=== PATIENT | female | born 1965 | race Caucasian/White ===

== ENCOUNTER 2019-02-19 03:32 | Emergency (ER) | payer OTHER ==
[~2019-02-19] VITALS: Ht 157.5 cm; Wt 67.7 kg
[~2019-02-19 03:32] MED LIST: LEXAPRO10 MG PO; LIBRAX CAPSULE1 CAP PO; NORCO 10/325 TA1 TA1 PO; NORCO 5/325 TAB1 TA1 PO
[2019-02-19 03:35] VITALS: Ht 157.5 cm; Wt 67.7 kg
[2019-02-19 03:55] LABS: BASOPHILS 0.3 % (0-2); EOSINOPHILS 0.5 % (0-7); HEMATOCRIT 41.7 % (36.0-48.0); HEMOGLOBIN 14.7 g/dL (12-16); IMMATURE GRANULOCYTES 0.1 % (0-5); LYMPHOCYTES 16.9 % (15-50); MCH 30.8 pg (26.0-34.0); MCHC 35.3 g/dL (31.0-37.0); MCV 87.2 fL (80.0-100.0); MEAN PLATELET VOLUME 9.6 fL (7.4-10.4); NEUTROPHILS 74.2 % (40-80); PLATELET COUNT 261 10x3/uL (130-400); RBC 4.78 10x6/uL (4.00-5.40); RDW 11.9 % (11.5-14.5); WBC 10.5 10x3/uL (4.8-10.8)
[2019-02-19 04:00] LABS: APPEARANCE HAZY (CLEAR); BACTERIA NONE SEEN /hpf (NONE SEEN); COLOR ORANGE (YELLOW); EPITHELIAL CELLS NSEEN /hpf (0-5); SPECIFIC GRAVITY 1.015 (1.005-1.020); WHITE CELLS - URINE NSEEN /hpf (0-5)
[2019-02-19 04:09] LABS: ALBUMIN 4.6 g/dL (3.4-5.0); ALKALINE PHOSPHATASE 104 U/L (46-116); ALT (SGPT) 35 U/L (10-68); BILIRUBIN - TOTAL 0.42 mg/dL (0.2-1.3); CALC OSMOLALITY 284 mosm/kg (275-300); CALCIUM 9.1 mg/dL (8.5-10.1); CARBON DIOXIDE 24.6 mmol/L (21.0-32.0); CHLORIDE - SERUM 104 mmol/L (98-107); GLUCOSE 117 mg/dL (74-106); POTASSIUM - SERUM 3.7 mmol/L (3.5-5.1); SODIUM 140 mmol/L (136-145); UREA NITROGEN 26 mg/dL (7-18); eGFR NON AFRICAN AMERICAN 62 mL/min (90-120)
[2019-02-19 04:12] LABS: AMYLASE - SERUM 52 U/L (25-115); LIPASE 151 U/L (73-393); TROPONIN-I < 0.017 ng/mL (0.000-0.060)
[2019-02-19] MEDS ORDERED: HYDROCODON-ACE1 EA10 PO (05:25)
[2019-02-19] MEDS ORDERED: ZOFRAN ODT4 MG/UDTAB PO (05:25)
[2019-02-19] MEDS ORDERED: FLOMAX0.4 MG PO (05:25)
[2019-02-19 05:39] VITALS: BP 132/80
== END 2019-02-19 05:40 | disposition home or self-care (01) ==
LOC: D.ER 03:32
PROVIDERS: Family Medicine
DX: R10.9 Unspecified abdominal pain (principal); R31.9 Hematuria, unspecified; N20.0 Calculus of kidney

== ENCOUNTER 2019-02-24 12:35 | Emergency (ER) | payer OTHER ==
[~2019-02-24] VITALS: Ht 157.5 cm; Wt 68.2 kg
[~2019-02-24 12:35] MED LIST changes: +FLOMAX0.4 MG PO; +HYDROCODON-ACE1 EA10 PO; +ZOFRAN ODT4 MG/UDTAB PO
[2019-02-24 12:43] VITALS: Ht 157.5 cm; Wt 68.2 kg
[2019-02-24 13:19] LABS: BASOPHILS 0.2 % (0-2); EOSINOPHILS 0.1 % (0-7); HEMATOCRIT 39.5 % (36.0-48.0); HEMOGLOBIN 14.2 g/dL (12-16); IMMATURE GRANULOCYTES 0.3 % (0-5); LYMPHOCYTES 8.1 % (15-50); MCH 31.3 pg (26.0-34.0); MCHC 35.9 g/dL (31.0-37.0); MEAN PLATELET VOLUME 9.3 fL (7.4-10.4); NEUTROPHILS 84.3 % (40-80); PLATELET COUNT 240 10x3/uL (130-400); RBC 4.54 10x6/uL (4.00-5.40); RDW 11.9 % (11.5-14.5); WBC 13.1 10x3/uL (4.8-10.8)
[2019-02-24 13:31] LABS: ALBUMIN 4.2 g/dL (3.4-5.0); ANION GAP 14.8 mmol/L (8-16); BILIRUBIN - TOTAL 0.41 mg/dL (0.2-1.3); CALCIUM 9.2 mg/dL (8.5-10.1); CARBON DIOXIDE 24.8 mmol/L (21.0-32.0); POTASSIUM - SERUM 3.6 mmol/L (3.5-5.1); PROTEIN - SERUM 7.9 g/dL (6.4-8.2)
[2019-02-24 13:40] LABS: APPEARANCE CLEAR (CLEAR); COLOR YELLOW (YELLOW); GLUCOSE NEGATIVE (NEGATIVE); KETONE SMALL mg/dL (NEGATIVE); NITRITE NEGATIVE (NEGATIVE); PROTEIN TRACE mg/dL (NEGATIVE)
[2019-02-24 13:41] LABS: BACTERIA FEW /hpf (NONE SEEN); BILIRUBIN NEGATIVE (NEGATIVE); EPITHELIAL CELLS 0-5 /hpf (0-5); UROBILINOGEN NORMAL (NORMAL); WHITE CELLS - URINE OCC /hpf (0-5)
[2019-02-24 13:42] LABS: HYALINE CAST RARE /lpf (NONE SEEN); MUCUS <1+ /lpf (NONE SEEN)
[2019-02-24] MEDS ORDERED: TORADOL10 MG PO (15:21)
[2019-02-24 16:20] VITALS: BP 127/58
== END 2019-02-24 16:20 | disposition home or self-care (01) ==
LOC: D.ER 12:35
PROVIDERS: Family Medicine
DX: N20.1 Calculus of ureter (principal)

== ENCOUNTER → 2019-03-01 19:36 | Outpatient (CLI) | payer OTHER ==
[2019-02-24 12:43] VITALS: BMI 27.5
[~2019-03-01 19:36] MED LIST changes: +TORADOL10 MG PO
== END | disposition home or self-care (01) ==
LOC: D.LABREF 19:36
PROVIDERS: ATTEND Urology
DX: R82.90 Unspecified abnormal findings in urine (principal)

== ENCOUNTER 2019-03-07 08:12 | Day surgery (SDC) | payer OTHER ==
[~2019-03-07] VITALS: Ht 157.5 cm; Wt 68.5 kg
[~2019-03-07 08:12] MED LIST changes: +AMOXICILLIN500 M1 PO
[2019-03-07 08:55] LABS: HEMATOCRIT 37.6 % (36.0-48.0); HEMOGLOBIN 13.5 g/dL (12-16); MCH 30.9 pg (26.0-34.0); MCHC 35.9 g/dL (31.0-37.0); MEAN PLATELET VOLUME 9.3 fL (7.4-10.4); RBC 4.37 10x6/uL (4.00-5.40); RDW 11.9 % (11.5-14.5); WBC 5.7 10x3/uL (4.8-10.8)
[2019-03-07 09:53] VITALS: BP 113/88; Ht 157.5 cm; Wt 68.5 kg
--- NOTE | 2019-03-07 13:34 | OP ---
PATIENT NAME: MARQUEZ NAM MEDICAL RECORD: [id number] :67 LOCATION:D.OPS ADMISSION DATE: SURGEON: JOHNATHON SMART MD DATE OF OPERATION: 03/07/2019 SURGEON: Johnathon Smart MD ANESTHESIA: General anesthesia by Chang Souza CRNA. PROCEDURE: Cystoscopy, left retrograde pyelogram. DIAGNOSIS: History of left ureteral stone. FINDINGS: On cystoscopy, single ureteral orifices bilaterally, inflamed bladder from recent cystitis. No bladder tumors. Left retrograde pyelogram shows no filling defects and no ureteral obstruction. BLOOD LOSS: None. CLINICAL HISTORY: This is a 53-year-old female, who came to the Emergency Room with left renal colic. CT scan shows a 5 mm left UV junction stone. She has a history of kidney stones in the past. She passed a kidney stone during . She comes now to have a left ureteroscopy and stone extraction. SHE IS ALLERGIC TO FLOMAX. 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 Significantly, today she does not have any pain. She does not recall passing a stone, however. DESCRIPTION OF PROCEDURE: The patient was given induction of general anesthesia in supine position. She was then placed into lithotomy position and prepped and draped. Fluoroscopy did not reveal any radiodense stones in the UV junction region on the left side. We decided to proceed with a left retrograde pyelogram for verification. A 21-Mongolian cystoscope was introduced with a 30-degree lens. Findings are as outlined above. We intubated the left ureteral orifice with an open-ended 5-Mongolian ureteral catheter. A pyelogram revealed no filling defects in the ureter all the way up to the kidney. When we removed the ureteral catheter, we saw good drainage of contrast down the ureter and out the ureteral orifice. There was no obstruction at all. The bladder was then emptied and the scope was removed. The patient will be seen in followup on a p.r.n. basis. TRANSINT:[id number] Voice Confirmation ID: [id number] DOCUMENT ID: [id number] JOHNATHON SMART MD at 1334 CC: [id number] DICTATION DATE: 03/07/19 1242 CULINARY ART TEACHER: 03/07/19 1323 [facility] [address] [place] [address]
--- NOTE | 2019-03-07 19:04 | NUR ---
1440 IV REMOVED AND PT VOIDED IN BATHROOM. PINK WITH BURNING ON URINATION, INSTRUCTIONS GIVEN.
== END 2019-03-07 14:55 | disposition home or self-care (01) ==
LOC: D.OPS 08:12 → D.PAN 10:30 → D.OPS 13:45
PROVIDERS: Anesthesiology; ATTEND Urology
DX: N20.1 Calculus of ureter (principal); N30.90 Cystitis, unspecified without hematuria; Z87.442 Personal history of urinary calculi; Z01.812 Encounter for preprocedural laboratory examination